=== PATIENT | female | born 1970 ===

== ENCOUNTER → 2022-05-10 | Outpatient (CLI) | payer OTHER | END | disposition home or self-care (01) | LOC: LAB SHORT 07:44 → PLD 07:44 | DX: L82.1 Other seborrheic keratosis (principal) | CPT/HCPCS: 88305 ==

== ENCOUNTER → 2022-09-10 | Outpatient (CLI) | payer OTHER ==
[2022-09-11 10:27] LABS: Candida species (DNA Probe) Negative (NEGATIVE); G. vaginalis (DNA Probe) Positive (NEGATIVE); T. vaginalis (DNA Probe) Negative (NEGATIVE)
[2022-09-13 10:08] LABS: HBSAG SCREEN Negative (Negative); HCV AB Non Reactive (Non Reactive); HEP A AB, IGM Negative (Negative); HEP B CORE AB, IGM Negative (Negative)
== END | disposition home or self-care (01) ==
LOC: LAB SHORT 17:00 → LAB 17:00
PROVIDERS: Nurse Practitioner Family
DX: R10.2 Pelvic and perineal pain (principal)
CPT/HCPCS: 80074; 86592; 87480; 87510; 87660

== ENCOUNTER → 2022-10-28 | Outpatient (CLI) | payer OTHER ==
[2022-10-29 15:12] LABS: HPV 16 Negative (Negative); HPV 18 Negative (Negative); HPV OTHER HR TYPES Negative (Negative)
== END | disposition home or self-care (01) ==
LOC: LAB 16:00 → RAD SHORT 16:00
PROVIDERS: Registered Nurse Community Health
DX: Z12.4 Encounter for screening for malignant neoplasm of cervix (principal)
CPT/HCPCS: 87624; G0145

== ENCOUNTER → 2024-03-13 | Outpatient (CLI) | payer OTHER ==
[2024-03-13 19:44] LABS: BASOPHILS ABSOLUTE AUTO 0.06 K/mm3 (0.00-0.23); BASOPHILS PERCENT AUTO 1 % (0-2); EOSINOPHILS ABSOLUTE AUTO 0.12 K/mm3 (0.00-0.68); EOSINOPHILS PERCENT AUTO 3 % (0-6); Hematocrit 30.9 % (33.0-51.0); Hemoglobin 9.2 g/dL (11.5-16.0); IMMATURE GRAN ABSOLUTE AUTO 0.01 K/mm3 (0.00-0.10); IMMATURE GRAN PERCENT AUTO 0 % (0-1); LYMPHOCYTES ABSOLUTE AUTO 1.81 K/mm3 (0.84-5.20); LYMPHOCYTES PERCENT AUTO 39 % (21-46); MONOCYTES ABSOLUTE AUTO 0.36 K/mm3 (0.16-1.47); MONOCYTES PERCENT AUTO 8 % (4-13); Mean Corpuscular HGB 23.2 pg (26.0-34.0); Mean Corpuscular HGB Conc 29.8 g/dL (31.5-36.5); Mean Corpuscular Volume 78 fL (80-100); Mean Platelet Volume 10.8 fL (9.1-12.4); NEUTROPHILS ABSOLUTE AUTO 2.32 K/mm3 (1.96-9.15); NEUTROPHILS PERCENT AUTO 50 % (41-73); Platelet Count 298 K/mm3 (150-400); RDW Coefficient Variation 16.7 % (11.7-14.2); RDW Standard Deviation 47.7 fL (35.1-46.3); Red Blood Cell Count 3.96 M/mm3 (3.80-5.20); White Blood Cell Count 4.68 K/mm3 (4.00-11.30)
[2024-03-13 21:56] LABS: Follicle Stimulating Hormone 48.3 mIU/ml; Luteinizing Hormone 25.6 mIU/ml
[2024-03-14 12:14] LABS: Percent Saturation 4.2 % (15.0-50.0)
== END ==
LOC: LAB 19:02 → LAB SHORT 19:02
PROVIDERS: Registered Nurse Community Health
DX: N92.0 Excessive and frequent menstruation with regular cycle (principal); D64.9 Anemia, unspecified
CPT/HCPCS: 82728; 83001; 83002; 83540; 83550; 85025

== ENCOUNTER 2024-03-26 02:53 | Day surgery (SDC) | payer OTHER ==
[~2024-03-26 02:53] MED LIST: Sod Ferric Gluc Complx/Sucrose 125 MG in NS 100 ML IV SCH
[2024-03-26] MEDS ORDERED: Sod Ferric Gluc Complx/Sucrose 125 MG in NS 100 ML IV SCH (06:00)
[2024-03-26] MEDS ORDERED: MULTIA DAILY M1 EACH PO (16:21)
[2024-03-26 16:26] VITALS: BP 113/56
== END 2024-03-26 17:30 | disposition home or self-care (01) ==
LOC: ATC 02:53
DX: D50.9 Iron deficiency anemia, unspecified (principal); F17.290 Nicotine dependence, other tobacco product, uncomplicated; N92.0 Excessive and frequent menstruation with regular cycle
CPT/HCPCS: 96365; J2916

== ENCOUNTER 2024-04-02 15:57 | Day surgery (SDC) | payer OTHER ==
[~2024-04-02 15:57] MED LIST changes: +MULTIA DAILY M1 EACH PO
[2024-04-02 16:09] VITALS: BP 110/63
== END 2024-04-02 17:18 | disposition home or self-care (01) ==
LOC: ATC 15:57
DX: D50.9 Iron deficiency anemia, unspecified (principal); N92.0 Excessive and frequent menstruation with regular cycle; F17.290 Nicotine dependence, other tobacco product, uncomplicated
CPT/HCPCS: 96365; J2916

== ENCOUNTER 2024-04-09 16:22 | Day surgery (SDC) | payer OTHER ==
[2024-04-09 16:28] VITALS: BP 119/62
== END 2024-04-09 17:38 | disposition home or self-care (01) ==
LOC: ATC 16:22
DX: D50.9 Iron deficiency anemia, unspecified (principal); N92.0 Excessive and frequent menstruation with regular cycle; F17.290 Nicotine dependence, other tobacco product, uncomplicated
CPT/HCPCS: 96365; J2916

== ENCOUNTER 2024-04-16 03:40 | Day surgery (SDC) | payer OTHER ==
[2024-04-16 16:17] VITALS: BP 104/58
== END 2024-04-16 17:20 | disposition home or self-care (01) ==
LOC: ATC 03:40
DX: D50.9 Iron deficiency anemia, unspecified (principal); Z87.891 Personal history of nicotine dependence
CPT/HCPCS: 96365; J2916

== ENCOUNTER → 2024-05-03 | Outpatient (CLI) | payer OTHER ==
[~2024-05-03] MED LIST changes: -Sod Ferric Gluc Complx/Sucrose 125 MG in NS 100 ML IV SCH
== END ==
LOC: LAB 11:02 → LAB SHORT 11:02
DX: N84.0 Polyp of corpus uteri (principal)
CPT/HCPCS: 88305

== ENCOUNTER 2024-08-02 09:42 | Day surgery (SDC) | payer OTHER ==
[2024-08-02] VITALS (9 sets, daily range): BP systolic 92–104; BP diastolic 48–68
[~2024-08-02] VITALS: Ht 162.6 cm; Wt 59.3 kg
[~2024-08-02 09:42] MED LIST changes: +ASCO500 PO; +CeFAZolin Sodium 2,000 MG VIAL ONE; +CeFAZolin Sodium 2,000 MG in NS 100 ML IV SCH; +Lactated Ringer's 1,000 ML IV SCH; +VITAMIN D5000 UNIT
[2024-08-02] MEDS ORDERED: CALCIUM 500 MG1 EAC9 PO (10:02)
--- NOTE | 2024-08-02 10:17 | NUR ---
History, Chart, Medications and Allergies reviewed before start of procedure. Patient confirms NPO status and agrees with scheduled surgery. Patient States Post-Procedure ride home has been arranged. Pre-Op teaching done. Pt verbalizes understanding. PATIENT AGREES PLANNED SURGERY.
[2024-08-02] MEDS ORDERED: Ondansetron HCl 2 MG / ML 2ML Vial ONE (10:54)
[2024-08-02] MEDS ORDERED: Dexamethasone Sod Phos 10 MG/ML 1ML VIAL ONE (10:54)
[2024-08-02] MEDS ORDERED: Metoclopramide HCl 5MG / ML 2ML Vial ONE (10:54)
[2024-08-02] MEDS ORDERED: FentaNYL Citrate 50 MCG/ML 2 ML Injection ONE (10:56)
[2024-08-02] MEDS ORDERED: DiphenhydrAMINE HCl 50 MG/ML 1ML Vial ONE (10:56)
[2024-08-02] MEDS ORDERED: Ketorolac Tromethamine 30mg Vial ONE (10:56)
[2024-08-02] MEDS ORDERED: Acetaminophen 500 MG Tab PO SCH (11:20)
[2024-08-02] MEDS ORDERED: propofoL 50 ML IV ONE (11:30)
[2024-08-02] MEDS ORDERED: OxyCODONE 5 mg/Acetamin 325 mg TABLET PO PRN (13:30)
--- NOTE | 2024-08-02 13:59 | NUR ---
Discharge instructions reviewed with patient. Patient verbalizes understanding. Copy given to patient to take home. Patient States Post-Procedure ride home has been arranged WITH SPOUSE, [facility], AT [facility]. Discharged via wheelchair to private car for ride home.
== END 2024-08-02 23:00 | disposition home or self-care (01) ==
LOC: ORSCMMR 09:42 → ORD 11:30 → ORSCMMR 23:00
PROVIDERS: Obstetrics & Gynecology
PROC: 0UDB8ZX Extraction of Endometrium, Via Natural or Artificial Opening Endoscopic, Diagnostic (ICD-10-PCS; principal; 2024-08-02 11:30)
DX: N95.0 Postmenopausal bleeding (principal); R93.89 Abnormal findings on diagnostic imaging of other specified body structures; Z87.891 Personal history of nicotine dependence
CPT/HCPCS: 88305; A9270; J0690; J1100; J1200; J1885; J2405; J2704; J2765; J3010; J7120